=== PATIENT | female | born 1985 | race African-American/Black ===

== ENCOUNTER 2017-05-23 14:34 | Emergency (ER) | payer BC, OTHER ==
[~2017-05-23] VITALS: Ht 157.5 cm; Wt 59.0 kg
[~2017-05-23 14:34] MED LIST: [UNRECOGNIZED DRUG - REMARK]
[2017-05-23] MEDS ORDERED: SODIUM CHLORIDE 0.9% 1,000 ML IV ONE (20:39)
[2017-05-23] MEDS ORDERED: KETOROLAC 60MG/2ML VIAL IM ONE (20:45)
[2017-05-23] MEDS ORDERED: TETRACAINE 0.5% OPHTH DROPS 4ML OP ONE (20:45)
[2017-05-23] MEDS ORDERED: FLUORESCEIN SODIUM 1MG/STRIP OP ONE (20:45)
[2017-05-23] MEDS ORDERED: HYDROCODONE/ACETAMINOPHEN 5/325MG TABLET PO ONE (20:45)
[2017-05-23] MEDS ORDERED: BALANCED SALT IRRIG SOLN 15ML IO ONE (20:45)
[2017-05-23 22:00] VITALS: BP 137/87
[2017-05-23 22:10] LABS: HCG SCREEN NEGATIVE
== END 2017-05-23 23:47 | disposition home or self-care (01) ==
LOC: ER 14:34
DX: R51 Headache (principal); Y08.89XA Assault by other specified means, initial encounter
CPT/HCPCS: 70450; 70486; 84703; 96360; 96372; 99285; J1885; J7030

== ENCOUNTER 2017-08-26 08:09 | Emergency (ER) | payer BC, OTHER ==
[~2017-08-26] VITALS: Ht 157.5 cm; Wt 83.0 kg
[2017-08-26] MEDS ORDERED: IBUPROFEN 600MG TABLET PO STA (09:46)
[2017-08-26] MEDS ORDERED: SODIUM CHLORIDE 0.9% 1,000 ML IV ONE (09:46)
[2017-08-26 10:18] LABS: BASOPHILS % 0.7 % (0.0-2.0); EOSINOPHILS % 0.3 % (0.0-5.0); HEMATOCRIT. 36.2 % (36.0-48.0); HEMOGLOBIN. 12.2 g/dL (12.0-16.0); LYMPHOCYTES % 13.2 % (20.0-50.0); MEAN CORPUSCULAR HEMOGLOBIN 29.9 pg (28.0-32.0); MEAN CORPUSCULAR VOLUME 88.3 fL (81.0-99.0); MEAN PLATELET VOLUME 6.6 fl (7.4-10.4); MONOCYTES % 5.2 % (2.0-8.0); NEUTROPHILS % 80.6 % (40.0-76.0); PLATELET 347 x1000/uL (130-400); RED CELL DISTRIBUTION WIDTH 14.9 % (11.6-14.6)
[2017-08-26 10:28] LABS: D-DIMER < 0.19 mg/L FEU (<0.50); INR 1.1; PROTHROMBIN TIME 11.2 sec (9.4-11.6)
[2017-08-26 10:34] LABS: CARBON DIOXIDE 25 mEq/L (21-32); CHLORIDE 109 mEq/L (98-107); TROPONIN I < 0.02 ng/mL (0.00-0.04)
[2017-08-26 11:31] LABS: CLARITY URINE CLOUDY (CLEAR); COLOR URINE YELLOW (YELLOW); KETONES URINE NEGATIVE (NEGATIVE); LEUKOCYTE ESTERASE URINE NEGATIVE (NEGATIVE); NITRITE URINE NEGATIVE (NEGATIVE); OCCULT BLOOD URINE 3+ (NEGATIVE); PROTEIN URINE TRACE (NEGATIVE); SPECIFIC GRAVITY URINE 1.028 (1.005-1.030)
[2017-08-26 11:46] LABS: *AMPHETAMINES SCREEN URINE NEGATIVE (NEGATIVE); *BARBITURATES SCREEN URINE NEGATIVE (NEGATIVE); *BENZODIAZEPINES SCREEN URINE NEGATIVE (NEGATIVE); *COCAINE SCREEN URINE NEGATIVE (NEGATIVE); METHADONE URINE SCREEN NEGATIVE (NEGATIVE); OPIATES URINE SCREEN NEGATIVE (NEGATIVE); PHENCYCLIDINE URINE SCREEN NEGATIVE (NEGATIVE)
[2017-08-26 12:02] LABS: CANNABINOID URINE SCREEN PRESUMTIVE POSITIVE (NEGATIVE)
[2017-08-26 12:49] VITALS: BP 154/86
== END 2017-08-26 12:36 | disposition home or self-care (01) ==
LOC: ER 08:22
DX: R07.2 Precordial pain (principal); R00.2 Palpitations; R06.02 Shortness of breath; R05 Cough; R50.9 Fever, unspecified
CPT/HCPCS: 36415; 71045; 80053; 80305; 81001; 83880; 84484; 85025; 85379; 85610; 87040; 87086; 87804; 93005; 96360; 99285; J7030; Z7610

== ENCOUNTER 2018-01-29 09:04 | Emergency (ER) | payer BC, OTHER ==
[~2018-01-29] VITALS: Ht 157.5 cm; Wt 64.0 kg
[2018-01-29 09:25] VITALS: BP 121/81
== END 2018-01-29 12:53 | disposition left against medical advice (07) ==
LOC: ER 09:04
DX: Z53.21 Procedure and treatment not carried out due to patient leaving prior to being seen by health care provider (principal)

== ENCOUNTER 2019-06-04 18:40 | Emergency (ER) | payer SELFPAY ==
[~2019-06-04] VITALS: Ht 157.5 cm; Wt 59.0 kg
[2019-06-04] MEDS ORDERED: METRONIDAZOLE 500MG TABLET PO ONE (23:30)
[2019-06-04] MEDS ORDERED: ONDANSETRON HCL 4MG TABLET PO ONE (23:30)
[2019-06-04] MEDS ORDERED: CEPHALEXIN 250MG CAPSULE PO ONE (23:30)
[2019-06-05 00:21] VITALS: BP 159/96
== END 2019-06-05 00:24 | disposition home or self-care (01) ==
LOC: ER 18:40
DX: T19.2XXA Foreign body in vulva and vagina, initial encounter (principal); X58.XXXA Exposure to other specified factors, initial encounter; Y93.89 Activity, other specified; Y92.9 Unspecified place or not applicable
CPT/HCPCS: 99284; Q0162; Z7610